=== PATIENT | female | born 1965 | race African-American/Black ===

== ENCOUNTER 2020-07-29 15:09 | Outpatient (CLI) | payer BC, SELFPAY ==
--- NOTE | ~2020-07-29 | US_ITS ---
EXAMINATION: US pelvic complete EXAM DATE: 07/29/2020 15:40 INDICATION: Abnormal uterine bleeding. Premenopausal. TECHNIQUE: Pelvic transabdominal sonogram was performed. There are multiple grayscale and Doppler im ages available for interpretation. There is no prior study for comparison. FINDINGS: Uterus measures 11.2 x 5.6 x 7.2 cm, probably with a 4 cm fibroid identified in the anteri or myometrium. Endometrial stripe measures 11 mm, within normal limits. There is no free pelvic flui d. Right adnexa: The ovary measures 3.5 x 1.7 x 3.5 cm and is morphologically normal. Ovarian vascular f low confirmed. Left adnexa: The ovary measures 4.3 x 2.0 x 3.1 cm and is morphologically normal. Ovarian vascular fl ow confirmed. IMPRESSION: 1. Probable fibroid. Reviewed, dictated and finalized at location A. IMPRESSION: 1. Probable fibroid.
== END 2020-07-29 15:10 ==
PROVIDERS: Visit Provider Obstetrics & Gynecology
DX: N93.8 Other specified abnormal uterine and vaginal bleeding (principal)
CPT/HCPCS: 76856

== ENCOUNTER → 2020-11-10 07:53 | Outpatient (CLI) | payer BC, SELFPAY ==
[2020-11-10 16:16] LABS: SARS-CoV-2 RNA PCR Negative
== END ==
PROVIDERS: Visit Provider Obstetrics & Gynecology
DX: Z01.812 Encounter for preprocedural laboratory examination (principal); Z20.822 Contact with and (suspected) exposure to COVID-19
CPT/HCPCS: C9803; U0003; U0005

== ENCOUNTER 2020-11-13 01:42 | Day surgery (SDC) | payer BC, SELFPAY ==
[2020-11-10 10:04] VITALS: BMI 31.0
[2020-11-13] VITALS (7 sets, daily range): BP systolic 75–130; BP diastolic 42–83; PULSE 47–93; RESP 12–18; TEMP 37.2; O2SAT 93–100
--- NOTE | 2020-11-13 09:42 | PM.HPGS ---
History of Present Illness History of Present Illness Consent: Risks, benefits, and alternatives have been discussed and questions answered. Patient agrees to proceed with procedure. Chief complaint: abnormal uterine bleeding, fibroids Narrative: Viviane Neil is a 55 year old female A1 presented to the office with heavy abnormal uterine bleeding. pelvic ultrasound showed uterine fibroids Review of Systems Constitutional: Constitutional: Reports fatigue PMFSH Past Medical History Medical History (Updated 11/13/20 @ 09:47 by Doug Martinez MD) Abnormal uterine bleeding (AUB) Social History Social History Smoking status: Never smoker Second hand tobacco smoke exposure: No Living arrangements: alone Spiritual care concerns: No Meds Home Medications and Allergies Home Medications Medication Instructions Recorded Confirmed Type No Home Medications 11/10/20 11/10/20 History Allergies Allergy/AdvReac Type Severity Reaction Status Date / Time No Known Allergies Allergy Verified 11/10/20 10:18 Exam Const: Orientation/consciousness: patient oriented x3 Cardio: Rate: regular rate Rhythm: regular rhythm : Speculum Exam - Vagina: normal appearance of the vagina Speculum Exam - Cervix: Patulous cervix present Bimanual exam- vagina & uterus: uterine mobility normal and enlarged Bimanual Exam- Adnexa, other: normal adnexae Assessment and Plan Assessment and plan (1) Abnormal uterine bleeding (AUB): Code(s): N93.9 - Abnormal uterine and vaginal bleeding, unspecified Status: Acute Assessment and Plan: scheduled for a hysteroscopy dilation and curettage with possible mysosure. Risk and benefits reviewed with patient in detail
[2020-11-13] MEDS: ACETAMINOPHEN 500 MG TABLET 1000 MG PO (12:35)
[2020-11-13] MEDS: LACTATED RINGERS 1,000 ML 30 ML IV CONT ×2 (12:51→14:57)
--- NOTE | 2020-11-13 13:01 | P.PNAN_ITS ---
Anes - Initial Pre Proc Eval Procedure: Operation Date: 11/13/20 14:30 Proposed Procedures p Hysteroscopy Dilation and Curettage With Possible Myosure - Doug Martinez MD Date/Time: 11/13/20 13:01 Surgeon: Doug Martinez MD Pre Op Diagnosis: abnormal uterine bleeding, fibroids Patient Data Age: 55 Gender: F Height: 1.57 m Weight: 77 kg Allergies Allergy/AdvReac Type Severity Reaction Status Date / Time No Known Allergies Allergy Verified 11/13/20 13:04 Home Medications Medication Instructions Recorded Confirmed Type No Home Medications 11/10/20 11/10/20 History Patient hx anesthesia problems: none Family hx anesthesia problems: none [facility] Past Medical History Medical History (Updated 11/13/20 @ 09:47 by Doug Martinez MD) Abnormal uterine bleeding (AUB) Social History Social History Smoking status: Never smoker Second hand tobacco smoke exposure: No Living arrangements: alone Spiritual care concerns: No Anes - Eval Final PreProcedure Day of Procedure 11/13/20 13:01 Patient weight: obese Heart: regular rate and rhythm Lungs: clear to auscultation and normal air movement Airway: Mallampati scale class II Neurological: alert and oriented Last oral intake: >/= 8 hours ASA classification: II Emergent: no Anesthetic plan: proceed Anesthesia type and monitoring: general GIVS and standard monitoring Informed Consent: The patient's anesthetic plan and its attendant risks and benefits were discussed with the patient/family/POA. Questions were solicited and answers provided to the satisfaction of the patient/family/POA.
--- NOTE | 2020-11-13 13:56 | WPDHPUPDATE1 ---
History and Physical Update Update Date/Time: 11/13/20 13:56 History and Physical has been reviewed, including an updated exam of the patient. There are NO changes in the patient's condition. Risks, benefits, and alternatives have been discussed and questions answered. Patient agrees to proceed with procedure.
--- NOTE | 2020-11-13 14:59 | P.OP_ITS ---
Procedure Note - Detailed Date of Procedure 11/13/20 Pre-op Diagnosis abnormal uterine bleeding, fibroids Post-op Diagnosis same Procedure Performed hysteroscopy with dilation and curettage with myosure Surgeon Doug Martinez MD Anesthesia MAC and local Findings multiple polyps Description of Procedure Patient was taken to the operating room with IV running. Prepped draped in a normal sterile fashion placed in lithotomy position. [place] speculum was placed into the vagina and the anterior lip of the cervix was grasped with a single-tooth tenaculum. the cervix was injected at the 2 and 10 o'clock position with 1% lidocaine. the uterus was sounded to 9cm and the cervix was serially dilated with Hegar dilators to an 8. Hysteroscope was introduced and noted multiple polyps. The hysteroscope was removed and the MyoSure device was introduced removing the polyps. The hysteroscope and MyoSure device was removed her sharp curettage was performed in all 4 quadrants to a gritty texture. The specimen was sent to pathology. All instruments were removed and hemostasis was assured sponge lap and needle counts were correct x2 Estimated Blood Loss 10 Drains No Packing No Pathology yes Complications None Condition stable Disposition same day
--- NOTE | 2020-11-13 15:34 | SUR.PHASEII ---
1534- Call to [facility] Pat Hartmann patient's HR into 30's, patient lightheaded and dizzy, BP 70's over 40's while sitting in recliner. Per Pat Hartmann she will be to bedside. Patient's BP improved to 84/49 with HR into 50's upon [facility] [employer]'s arrival to outpatient room. Patient's symptoms resolving. Per [facility] watch patient closely and bolus patient's second liter of LR. Call and notify her if patient's HR drops or BP drops after bolus completion.
[2020-11-13] MEDS: ONDANSETRON INJ 4 MG/2 ML VIAL IV PUSH (16:12)
== END 2020-11-13 16:56 | disposition home or self-care (01) ==
PROVIDERS: PCP Internal Medicine; Visit Provider Obstetrics & Gynecology
PROC: 0U5B8ZZ Destruction of Endometrium, Via Natural or Artificial Opening Endoscopic (ICD-10-PCS; CPT 58563; principal; 2020-11-13 14:30)
DX: N93.9 Abnormal uterine and vaginal bleeding, unspecified (principal); N85.01 Benign endometrial hyperplasia; E66.9 Obesity, unspecified; Z68.30 Body mass index [BMI] 30.0-30.9, adult
CPT/HCPCS: 58558; 88305; A9270; J1100; J2250; J2405; J2704; J3010; J7030; J7120